=== PATIENT | female | born 1955 | race Caucasian/White ===

== ENCOUNTER 2017-04-07 14:09 | Emergency (ER) | payer OTHER ==
[~2017-04-07 14:09] MED LIST: ATORVASTATIN CA20 M1 PO; FERROUS SULFAT325 MG PO; LEVOTHYROXINE0.05 M1 PO; LEVOTHYROXINE0.2 M2 PO; LISINOPRIL20 MG PO; METFORMIN500 MG PO; VITAMIN D50000 I3 PO
[2017-04-07] MEDS ORDERED: NAPROSYN500 MG PO (15:58)
== END 2017-04-07 16:06 | disposition home or self-care (01) ==
LOC: ED 14:09
DX: S60.042A Contusion of left ring finger without damage to nail, initial encounter (principal); R03.0 Elevated blood-pressure reading, without diagnosis of hypertension; Z88.0 Allergy status to penicillin; Z88.1 Allergy status to other antibiotic agents; Z79.899 Other long term (current) drug therapy; W23.0XXA Caught, crushed, jammed, or pinched between moving objects, initial encounter; Y93.9 Activity, unspecified; Y92.9 Unspecified place or not applicable; Y99.9 Unspecified external cause status

== ENCOUNTER → 2025-06-03 | Outpatient (CLI) | payer MEDICARE ==
[~2025-06-03] MED LIST changes: +NAPROSYN500 MG PO
== END | disposition home or self-care (01) ==
LOC: CT 05-04 14:00
PROVIDERS: ATTEND Nurse Practitioner Family
DX: J84.10 Pulmonary fibrosis, unspecified (principal); R91.8 Other nonspecific abnormal finding of lung field; I51.7 Cardiomegaly